=== PATIENT | male | born 1995 | race African-American/Black ===

== ENCOUNTER 2017-06-02 21:16 | Emergency (ER) | payer OTHER ==
[~2017-06-02] VITALS: Ht 182.9 cm; Wt 80.0 kg
[2017-06-02 21:18] VITALS: BP 140/71; PULSE 96; RESP 16; TEMP 102.2; O2SAT 97
[2017-06-02 21:26] VITALS: BP 131/74; PULSE 87; RESP 18; O2SAT 99
--- NOTE | 2017-06-02 21:48 | PD ---
HPI Chief Complaint: Cold / Flu Symptoms Time Seen by Provider: 21:35 Travel History International Travel<30 days: No Contact w/Intl Traveler<30days: No Traveled to known affect area: No History of Present Illness HPI 22-year-old male complains of headache, neck pain, sore throat, coughing, body ache and fever. Patient started having intermittent headache 4 days ago. Patient started having fever, neck pain, nausea since this morning. Patient states that he has intermittent dry cough also. Patient denies any visual change. Patient denies any chest pain or shortness of breath. Patient denies abdominal pain. Patient states that he has nausea but no vomiting or diarrhea. Patient complains of body ache. PFSH Past Medical History Medical History: Denies Significant Hx Diminished Hearing: No Tetanus Vaccination: Unknown Influenza Vaccination: No Past Surgical History Surgical History: No Previous Surgery Social History Alcohol Use: No Tobacco Use: No Substance Use: No Allergies-Medications (Allergen,Severity, Reaction): Coded Allergies: No Known Allergies (Unverified , 07/28/14) Reported Meds & Prescriptions Reported Meds & Active Scripts Active No Active Prescriptions or Reported Medications Review of Systems General / Constitutional: Positive: Fever Eyes: No: Visual changes HENT: Positive: Headaches, Neck Pain Cardiovascular: No: Chest Pain or Discomfort Respiratory: Positive: Cough, No: Shortness of Breath Gastrointestinal: Positive: Nausea, No: Abdominal Pain Genitourinary: No: Dysuria Musculoskeletal: No: Pain Skin: No Rash Neurologic: No: Weakness Psychiatric: No: Depression Endocrine: No: Polydipsia Hematologic/Lymphatic: No: Easy Bruising Physical Exam Narrative GENERAL: Well-nourished, well-developed patient. SKIN: Focused skin assessment warm/dry. HEAD: Normocephalic. EYES: No scleral icterus. No injection or drainage. Throat: Mild erythematous. No exudate or edema. NECK: Supple, trachea midline. No JVD or lymphadenopathy. Patient has mild tenderness paraspinal area cervical spine. No meningismus. CARDIOVASCULAR: Regular rate and rhythm without murmurs, gallops, or rubs. RESPIRATORY: Breath sounds equal bilaterally. No accessory muscle use. GASTROINTESTINAL: Abdomen soft, non-tender, nondistended. MUSCULOSKELETAL: No cyanosis, or edema. BACK: Nontender without obvious deformity. No CVA tenderness. Neurologic exam normal. Data Data Last Documented VS Vital Signs Date Time Temp Pulse Resp B/P (MAP) Pulse Ox O2 Delivery O2 Flow Rate FiO2 06/02/17 22:06 16 98 Room Air 06/02/17 21:26 87 06/02/17 21:18 102.2 Orders Orders Complete Blood Count With Diff (06/02/17 21:40) Comprehensive Metabolic Panel (06/02/17 21:40) Blood Culture (06/02/17 21:40) Urinalysis - C+S If Indicated (06/02/17 21:40) Chest, Single Ap (06/02/17 21:40) Iv Access Insert/Monitor (06/02/17 21:40) Ecg Monitoring (06/02/17 21:40) Oximetry (06/02/17 21:40) Lactic Acid (06/02/17 21:40) C-Reactive Protein (Crp) (06/02/17 21:43) Westergren Sedimentation Rate (06/02/17 21:43) Influenzae A/B Antigen (06/02/17 21:43) Group A Rapid Strep Screen (06/02/17 21:43) Sodium Chlor 0.9% 1000 Ml Inj (Ns 1000 M (06/02/17 22:00) Ketorolac Inj (Toradol Inj) (06/02/17 22:00) Acetaminophen (Tylenol) (06/02/17 22:00) Strep Culture (Group A) (06/02/17 22:00) Labs Laboratory Tests Test 06/02/17 22:00 White Blood Count 11.4 TH/MM3 Red Blood Count 5.36 MIL/MM3 Hemoglobin 16.5 GM/DL Hematocrit 46.9 % Mean Corpuscular Volume 87.6 FL Mean Corpuscular Hemoglobin 30.7 PG Mean Corpuscular Hemoglobin Concent 35.1 % Red Cell Distribution Width 12.6 % Platelet Count 189 TH/MM3 Mean Platelet Volume 8.5 FL Neutrophils (%) (Auto) 83.6 % Lymphocytes (%) (Auto) 10.0 % Monocytes (%) (Auto) 6.1 % Eosinophils (%) (Auto) 0.1 % Basophils (%) (Auto) 0.2 % Neutrophils # (Auto) 9.5 TH/MM3 Lymphocytes # (Auto) 1.1 TH/MM3 Monocytes # (Auto) 0.7 TH/MM3 Eosinophils # (Auto) 0.0 TH/MM3 Basophils # (Auto) 0.0 TH/MM3 CBC Comment DIFF FINAL Differential Comment Erythrocyte Sedimentation Rate 2 mm/hr Urine Color YELLOW Urine Turbidity CLEAR Urine pH 6.5 Urine Specific Divide 1.014 Urine Protein NEG mg/dL Urine Glucose (UA) NEG mg/dL Urine Ketones NEG mg/dL Urine Occult Blood NEG Urine Nitrite NEG Urine Bilirubin NEG Urine Urobilinogen 2.0 MG/DL Urine Leukocyte Esterase NEG Urine RBC LESS THAN 1 /hpf Urine WBC LESS THAN 1 /hpf Microscopic Urinalysis Comment CULT NOT INDICATED Blood Urea Nitrogen 8 MG/DL Creatinine 1.25 MG/DL Random Glucose 107 MG/DL Total Protein 7.4 GM/DL Albumin 3.9 GM/DL Calcium Level 8.7 MG/DL Alkaline Phosphatase 52 U/L Aspartate Amino Transf (AST/SGOT) 12 U/L Alanine Aminotransferase (ALT/SGPT) 19 U/L Total Bilirubin 1.5 MG/DL Sodium Level 138 MEQ/L Potassium Level 3.5 MEQ/L Chloride Level 103 MEQ/L Carbon Dioxide Level 24.9 MEQ/L Anion Gap 10 MEQ/L Estimat Glomerular Filtration Rate 87 ML/MIN Lactic Acid Level 1.8 mmol/L C-Reactive Protein 5.20 MG/DL MDM Medical Decision Making Medical Screen Exam Complete: Yes Emergency Medical Condition: Yes Interpretation(s) Last Impressions Chest X-Ray 06/02/172139 Signed Impressions: Service Date/Time: Friday, June 02, 2017 22:00 - CONCLUSION: No acute disease. Nazario Maki MD 23:40 PM. CBC within normal limit. WBC 11.4. 83 neutrophil. Sedimentation rate 2. Total bili 1.5. C-reactive protein 5.2. UA is negative. Lactic acid 1.8. Influenza AB antigen negative. Strep screen negative. Differential Diagnosis Differential diagnosis including viral syndrome, bronchitis, bronchitis, pneumonia, sepsis, meningitis. Narrative Course 22-year-old male with fever, headache, neck pain, cough, nausea and body ache. Normal saline solution 1 L IV bolus. Toradol 30 mg IV. Tylenol 650 mg by mouth. Diagnosis Primary Impression: Viral syndrome Additional Impression: Pharyngitis Qualified Codes: J02.9 - Acute pharyngitis, unspecified Patient Instructions: General Instructions Additional Instructions: Tylenol for headache aching pain. Zofran as needed for nausea vomiting. Follow -up with personal physician. Return if worse. Return immediately if increased headache, stiff neck. Med/Other Pt SpecificInfo: Prescription(s) given Scripts Ondansetron Odt (Zofran Odt) 4 Mg Tab 4 MG SL Q6HR Y for Nausea/Vomiting, #10 TAB 0 Refills Prov: Mati Leigh MD 06/02/17 Disposition: 01 DISCHARGE HOME Condition: Stable Mati Leigh MD Jun 02, 2017 21:47
[2017-06-02] MEDS ORDERED: ACETAMINOPHEN 325 MG TAB PO ONE (22:00)
[2017-06-02] MEDS ORDERED: SODIUM CHLOR 0.9% 1000 ML INJ 1,000 ML IV ONE (22:00)
[2017-06-02] MEDS ORDERED: KETOROLAC TROMETHAMINE 30 MG/ML (IVP) VIAL IV PUSH ONE (22:00)
[2017-06-02 22:06] VITALS: RESP 16; O2SAT 98
[2017-06-02 22:27] LABS: AUTOMATED NEUTROPHIL # 9.5 TH/MM3 (1.8-7.7); BASOPHIL % 0.2 % (0.0-2.0); EOSINOPHIL % 0.1 % (0.0-4.0); HEMATOCRIT 46.9 % (39.0-51.0); HEMO FLAGS DIFF FINAL; LYMPHOCYTE # 1.1 TH/MM3 (1.0-4.8); MEAN CELL VOLUME 87.6 FL (80.0-100.0); MEAN CORPUSCULAR HEMOGLOBIN 30.7 PG (27.0-34.0); MEAN CORPUSCULAR HGB CONC 35.1 % (32.0-36.0); MONO % 6.1 % (0.0-8.0); NEUT % 83.6 % (16.0-70.0); PLATELET COUNT 189 TH/MM3 (150-450); RED BLOOD COUNT 5.36 MIL/MM3 (4.50-5.90); RED CELL DISTRIBUTION WIDTH 12.6 % (11.6-17.2); WHITE BLOOD COUNT 11.4 TH/MM3 (4.0-11.0)
--- NOTE | 2017-06-02 22:36 | RADRPT ---
EXAM DATE/TIME: 06/02/2017 22:00 [facility] COMPARISON: No previous studies available for comparison. INDICATIONS : Cough and fever. MEDICAL HISTORY : None. SURGICAL HISTORY : None. ENCOUNTER: Initial ACUITY: 3 days PAIN SCORE: 0/10 LOCATION: Bilateral chest FINDINGS: A single view of the chest demonstrates the lungs to be symmetrically aerated without evidence of mas s, infiltrate or effusion. The cardiomediastinal contours are unremarkable. Osseous structures are intact. CONCLUSION: No acute disease. Nazario Maki MD on June 02, 2017 at 22:35 Board Certified Radiologist. This report was verified electronically.
[2017-06-02 22:40] LABS: ALKALINE PHOSPHATASE 52 U/L (45-117); ALT (GPT) 19 U/L (12-78); TOTAL BILIRUBIN ADULT 1.5 MG/DL (0.2-1.0)
[2017-06-02 22:43] LABS: ANION GAP 10 MEQ/L (5-15); AST (GOT) 12 U/L (15-37); BICARBONATE 24.9 MEQ/L (21.0-32.0); BLOOD UREA NITROGEN 8 MG/DL (7-18); CHLORIDE 103 MEQ/L (98-107); GLOMERULAR FILTRATION RATE 87 ML/MIN (>89); POTASSIUM 3.5 MEQ/L (3.5-5.1); SODIUM (NA) 138 MEQ/L (136-145)
[2017-06-02 22:45] LABS: BLOOD, URINE NEG (NEG); COMMENT (UR) CULT NOT INDICATED; CULTURE IF INDICATED CULT NOT INDICATED; GLUCOSE,URINE NEG (NEG); KETONE, URINE NEG (NEG); NITRITE,URINE NEG (NEG); PH, URINE 6.5 (5.0-8.5); URINE COLOR YELLOW (YELLW/STRAW)
[2017-06-02] MEDS ORDERED: ZOFR4TAB3 SL (23:45)
--- NOTE | 2017-06-03 13:40 | EKG ---
Date Performed: 06/02/2017 Time Performed: 21:32:40 PTAGE: 22 years EKG: Sinus rhythm POSSIBLE LEFT ATRIAL ENLARGEMENT NONSPECIFIC ST & T-WAVE ABNORMALITY BORDERLINE ECG NO PREVIOUS TRACING DOCTOR: Alberto Reece Interpretating Date/Time 06/03/2017 13:38:03
== END 2017-06-03 00:27 | disposition home or self-care (01) ==
LOC: NEPC 21:16
DX: B34.9 Viral infection, unspecified (principal); J02.9 Acute pharyngitis, unspecified; R07.9 Chest pain, unspecified; R51 Headache
CPT/HCPCS: 71010; 80053; 81001; 83605; 85025; 85652; 86140; 87040; 87081; 87804; 87880; 93005; 96374; 99285; J1885; J7030